=== PATIENT | female | born 1945 | race Caucasian/White ===

== ENCOUNTER 2016-03-03 06:20 | Emergency (ER) | payer MEDICARE, OTHER ==
--- NOTE | 2016-03-03 08:02 | RAD ---
HISTORY: Head injury COMPARISONS: None TECHNIQUE: Multiple contiguous axial CT scans were obtained of the head without intravenous contrast. FINDINGS: HEMORRHAGE/INFARCT: There is no hemorrhage or acute infarct. MASSES/SHIFT: There is no mass or shift. EXTRA-AXIAL SPACES: There are no extra-axial fluid collections. SULCI AND VENTRICLES: The sulci and ventricles are normal in size and position for the patient's stated age. CEREBRUM: There are no focal parenchymal abnormalities. BRAINSTEM: There are no focal parenchymal abnormalities. CEREBELLUM: There are no focal parenchymal abnormalities. VESSELS: The vessels are grossly normal. PARANASAL SINUSES: The paranasal sinuses are clear. ORBITS: The orbits are unremarkable. BONES AND SOFT TISSUE: No bone or soft tissue abnormalities are noted. OTHER: None IMPRESSION: NO ACUTE INTRACRANIAL PATHOLOGY.
--- NOTE | 2016-03-03 08:04 | RAD ---
HISTORY: Injury, facial trauma COMPARISONS: None TECHNIQUE: Multiple contiguous axial CT scans were obtained of the face without intravenous contrast, with coronal and sagittal multiplanar reformations. FINDINGS: BONES: There is no displaced fracture or dislocation. The orbital rim is intact. The zygomatic arch is intact. The pterygoid plates are intact. Degenerative changes are noted of the cervical spine ORBITS: The globes are round. The optic nerves are symmetric. The extraocular musculature is normal. There is no post septal or intraconal inflammatory change. There is no retrobulbar hematoma. PARANASAL SINUSES: The paranasal sinuses are clear. BRAIN AND SOFT TISSUE: Unremarkable. OTHER: None. IMPRESSION: NO FACIAL FRACTURE
--- NOTE | 2016-03-03 08:07 | RAD ---
INDICATION: Bilateral shoulder pain. TECHNIQUE: 3 views of both shoulders were obtained. FINDINGS: The bones are in normal alignment. No fracture is seen. Joint spaces appear maintained. IMPRESSION: NEGATIVE EXAM.
--- NOTE | 2016-03-03 08:09 | ED ---
Guy Roa SooYoung, scribed for Mauro Espinal on 03/03/16 at 0650 . Adult Trauma - HPI Summary HPI Summary: A 70 y/o F presents to ED after a fall in her driveway yesterday at approv 1000. Pt states she tripped over her feet. Denies LOC. She has facial abrasions and bruising. Associated sx: shoulder pain, R worse than L. Pt does not take any blood thinners. Denies SOB, CP, neck pain. Pt is UTD on tetanus. - History of Current Complaint Chief Complaint: EDHeadInjury Stated Complaint: FACIAL LAC/SHOULDER PAIN FALL Hx Obtained From: Patient Mechanism of Injury: Fall - from standing Loss of Consciousness: no loss of consciousness Current Severity: Moderate Pain Intensity: 6 Pain Scale Used: 0-10 Numeric Associated Signs & Symptoms: Positive: Ecchymosis - facial, Other: - shoulder pain. Negative: SOB, Chest Pain, Loss of Consciousness - Allergy/Home Medications Allergies/Adverse Reactions: Allergies Allergy/AdvReac Type Severity Reaction Status Date / Time Fish Allergy Allergy Unknown Verified 11/23/15 14:10 Reaction Details Hydrogen Peroxide Allergy See Comment Verified 11/23/15 14:10 Witch Sayra Allergy See Comment Verified 11/23/15 14:10 PMH/Surg Hx/FS Hx/Imm Hx Previously Healthy: Yes - Cancer History Hx Chemotherapy: No Hx Radiation Therapy: No Infectious Disease History: No Infectious Disease History: Denies: Traveled Outside the [place] in Last 30 Days - Family History Known Family History: Positive: Other - BREAST CA - Social History Occupation: Retired Lives: With Family Review of Systems Negative: Chest Pain Negative: Shortness Of Breath Positive: Other - pos: shoulder pain, R worse than L; neg: neck pain Positive: Other - FACIAL ABRASIONS All Other Systems Reviewed And Are Negative: Yes Physical Exam Triage Information Reviewed: Yes Vital Signs On Initial Exam: Initial Vitals Temp Pulse Resp BP Pulse Ox 97.8 F 90 20 142/91 98 03/03/16 06:23 03/03/16 06:23 03/03/16 06:23 03/03/16 06:23 03/03/16 06:23 Vital Signs Reviewed: Yes Appearance: Positive: Well-Appearing, No Pain Distress Skin: Positive: Warm, Skin Color Reflects Adequate Perfusion, Dry, Other - ABRASION TO NOSE, CHIN; BRUISING OVER BILAT ORBTS Head/Face: Positive: Normal Head/Face Inspection Eyes: Positive: EOMI, KIERA ENT: Positive: Normal ENT inspection Neck: Positive: Supple, Nontender Respiratory/Lung Sounds: Positive: Clear to Auscultation, Breath Sounds Present Cardiovascular: Positive: RRR, Pulses are Symmetrical in both Upper and Lower Extremities Abdomen Description: Positive: Nontender, Soft Bowel Sounds: Positive: Present Musculoskeletal: Positive: Other - RESTRICTURED ROM AT R SHOULDER; TENDERNESS AT R SHOULDER Neurological: Positive: Normal, Sensory/Motor Intact, Alert, Oriented to Person Place, Time Diagnostics - Vital Signs Vital Signs Temp Pulse Resp BP Pulse Ox 03/03/16 06:23 97.8 F 90 20 142/91 98 - Laboratory Lab Statement: Any lab studies that have been ordered have been reviewed, and results considered in the medical decision making process. - Radiology Bilateral Shouler XR Xray Interpretation: No Acute Changes Radiology Interpretation Completed By: Radiologist - CT CT Brain CT Interpretation: No Acute Changes CT Interpretation Completed By: Radiologist CT Maxillofacial CT Interpretation: No Acute Changes CT Interpretation Completed By: Radiologist Adult Trauma Course/Dx - Course Course Of Treatment: CT Brain, CT maxillofacial, and bilateral shoulder XR are negative. Wll d/c the pt on motran and to follow up with PCP. - Diagnoses Provider Diagnoses: Head injury, Shoulder pain Discharge - Discharge Plan Condition: Stable Disposition: HOME Discharge Disposition Comment: endorsed to Dr Wilks Referrals: Helena Mcintyre MD [Primary Care Provider] - The documentation as recorded by the Guy walden SooYoung accurately reflects the service I personally performed and the decisions made by Teddy jones Emmanuel.
[2016-03-03 08:23] VITALS: BP 134/92
== END 2016-03-03 08:24 | disposition home or self-care (01) ==
LOC: ED 06:20
DX: S09.90XA Unspecified injury of head, initial encounter (principal); M25.512 Pain in left shoulder; M25.511 Pain in right shoulder; W18.09XA Striking against other object with subsequent fall, initial encounter; Y92.488 Other paved roadways as the place of occurrence of the external cause
CPT/HCPCS: 70450; 70486; 99283

== ENCOUNTER 2018-06-30 12:01 | Emergency (ER) | payer MEDICARE, OTHER ==
--- NOTE | 2018-06-30 13:42 | ED ---
Laceration/Wound HPI - HPI Summary HPI Summary: Patient is an otherwise healthy 72-year-old female presenting to the ED with a 0.5 cm laceration to the distal tip of the left little finger. She states she was chopping vegetables when the knife slipped and cut her small finger. Bleeding is well controlled on arrival. Last tetanus was 2 years ago per patient. Denies any blood thinners. Denies any pain currently. Symptoms are not worse or better with palpation. - History of Current Complaint Stated Complaint: LEFT PINKY LAC PER PT Time Seen by Provider: 06/30/18 12:17 Hx Obtained From: Patient, Family/Motor Vehicle Examiner Mechanism of Injury: Sharp/Blunt Trauma Onset/Duration: Sudden Onset Aggravating: Movement Alleviating: Compression Timing: Constant Onset Severity: Mild Current Severity: None Pain Intensity: 0 Pain Scale Used: 0-10 Numeric Associated Signs & Symptoms: Negative - Allergy/Home Medications Allergies/Adverse Reactions: Allergies Allergy/AdvReac Type Severity Reaction Status Date / Time hydrogen peroxide Allergy Blisters Verified 06/30/18 12:05 shellfish derived Allergy Unknown Verified 06/30/18 12:05 Reaction Details witch ronak Allergy Blisters Verified 06/30/18 12:05 Home Medications: Home Medications Aspirin 81 mg CHEW TAB* [Aspirin Low Dose TAB*] 81 mg PO DAILY 06/30/18 [ History Confirmed 06/30/18] Coconut Oil [Coconut Oil Organic] 1,000 mg PO DAILY 06/30/18 [History Confirmed 06/30/18] Glucosam/Chond/Hyalu/Cf Borate [Move Free Joint Health Ad] 1 tab PO DAILY [History Confirmed 06/30/18] Multivitamin [Multivitamins] 1 cap PO DAILY 06/30/18 [History Confirmed 06/30/18 ] PMH/Surg Hx/FS Hx/Imm Hx Previously Healthy: Yes Endocrine/Hematology History: Denies: Hx Anticoagulant Therapy - Cancer History Hx Chemotherapy: No Hx Radiation Therapy: No - Immunization History Hx Pertussis Vaccination: No Immunizations Up to Date: Yes Infectious Disease History: No Infectious Disease History: Denies: Traveled Outside the [place] in Last 30 Days - Family History Known Family History: Positive: Other - BREAST CA - Social History Occupation: Unemployed Lives: With Family Alcohol Use: None Hx Substance Use: No Substance Use Type: Reports: None Hx Tobacco Use: No Smoking Status (MU): Never Smoked Tobacco Review of Systems Constitutional: Negative Negative: Fever, Chills, Fatigue, Skin Diaphoresis Negative: Palpitations, Chest Pain Negative: Shortness Of Breath, Cough Genitourinary: Negative Positive: no symptoms reported, see HPI Negative: Arthralgia, Myalgia All Other Systems Reviewed And Are Negative: Yes Physical Exam Triage Information Reviewed: Yes Vital Signs On Initial Exam: Initial Vitals Temp Pulse Resp BP Pulse Ox 97.8 F 94 16 169/93 98 06/30/18 12:02 06/30/18 12:02 06/30/18 12:02 06/30/18 12:02 06/30/18 12:02 Vital Signs Reviewed: Yes Appearance: Positive: Well-Appearing, Well-Nourished Skin: Positive: Warm, Skin Color Reflects Adequate Perfusion Head/Face: Positive: Normal Head/Face Inspection Eyes: Positive: EOMI, Conjunctiva Clear Neck: Positive: Supple, No Lymphadenopathy Respiratory/Lung Sounds: Positive: Clear to Auscultation, Breath Sounds Present Cardiovascular: Positive: Pulses are Symmetrical in both Upper and Lower Extremities Musculoskeletal: Positive: Strength/ROM Intact Neurological: Positive: Speech Normal Psychiatric: Positive: Affect/Mood Appropriate Diagnostics - Vital Signs Vital Signs Temp Pulse Resp BP Pulse Ox 06/30/18 12:02 97.8 F 94 16 169/93 98 - Laboratory Lab Statement: Any lab studies that have been ordered have been reviewed, and results considered in the medical decision making process. Laceration Repair Course/Dx - Course Course Of Treatment: Patient is evaluated for 0.5 cm laceration to the distal tip of the left little finger. Bleeding is well-controlled. Adhesive applied as patient does not require sutures at this time. Patient tolerated well. Occlusive gauze and tube gauze wrapped. She is given care instructions. - Clinical Impression Provider Diagnoses: Laceration Discharge - Sign-Out/Discharge Documenting (check all that apply): Patient Departure Patient Received Moderate/Deep Sedation with Procedure: No - Discharge Plan Condition: Stable Disposition: HOME Patient Education Materials: Skin Adhesive Care (ED) Referrals: Helena Mcintyre MD [Primary Care Provider] - Additional Instructions: Keep then bandage applied until later this afternoon The glue will slowly flake off over the next few days - Billing Disposition and Condition Condition: STABLE Disposition: Home
[2018-06-30 13:44] VITALS: BP 0/0
== END 2018-06-30 13:43 | disposition home or self-care (01) ==
LOC: ED 12:01
DX: S61.217A Laceration without foreign body of left little finger without damage to nail, initial encounter (principal); W26.0XXA Contact with knife, initial encounter; Y93.G1 Activity, food preparation and clean up; Y92.9 Unspecified place or not applicable; Z79.82 Long term (current) use of aspirin
CPT/HCPCS: 99282

== ENCOUNTER 2022-06-22 09:53 | Observation (INO) ==
[2022-06-22 10:24] LABS: ABS Basophils 0.1 10^3/uL (0.0-0.1); ABS Eosinophils 0.1 10^3/uL (0.0-0.5); ABS Lymphocytes 1.7 10^3/uL (1.0-4.8); ABS Monocytes 0.7 10^3/uL (0.0-0.9); Eosinophil % 2.2 %; Hematocrit 46.9 % (35-45); Hemoglobin 15.3 g/dL (11.5-14.3); Lymphocyte % 25.9 %; Mean Corpuscular Hemoglobin 29.4 pg (27-33); Mean Corpuscular Hgb Conc 32.7 g/dL (31-36); Mean Corpuscular Volume 89.9 fL (80-97); Nucleated Red Blood Cells % 0.1 /100 WBC (0.0-0.4); Platelet Count 214 10^3/uL (150-450); Red Blood Count 5.22 10^6/uL (3.63-4.92); Red Cell Distribution Width 13.3 % (12-17); White Blood Count 6.6 10^3/uL (3.8-11.8)
[2022-06-22 10:33] LABS: Activated Partial Thrombo Time 29.8 seconds (26.0-38.0); INR 0.95 (0.88-1.18)
[2022-06-22 11:19] LABS: Albumin 4.1 g/dL (3.2-5.2); Calcium 11.7 mg/dL (8.6-10.3); Potassium 4.7 mmol/L (3.5-5.0); Total Bilirubin 0.4 mg/dL (0.2-1.0)
[2022-06-22 11:25] LABS: Albumin/Globulin Ratio 1.6 (1-3); Creatinine, Serum 0.7 mg/dL (0.51-0.95); Globulin 2.5 g/dL (2-4); HDL Cholesterol 42.5 mg/dL; Total Protein 6.6 g/dL (6.4-8.9); eGFR CKD-EPI 89.6 (>60)
[2022-06-22 13:48] LABS: Urine Appearance Cloudy; Urine Bilirubin Negative (Negative); Urine Blood Negative (Negative); Urine Color Yellow; Urine Glucose Negative (Negative); Urine Ketones Negative (Negative); Urine Nitrite Negative (Negative); Urine Protein Negative (Negative); Urine Specific Gravity 1.012 (1.002-1.030); Urine Urobilinogen Negative (Negative)
[2022-06-22 15:54] LABS: TSH Ultra Thyroid Stim Horm 1.46 mcIU/mL (0.34-5.60)
[2022-06-22] MEDS: NS 0.9% 1000 ml BAG 1,000 ML IV SCH (18:11)
[2022-06-23] MEDS: NS 0.9% 1000 ml BAG 1,000 ML IV SCH (04:11)
[2022-06-23 10:40] VITALS: BP 112/66
== END 2022-06-23 11:10 | disposition home or self-care (01) ==
LOC: ED 09:53 → EDHOLD 09:53 → SUATTDRO 14:03 → MEDTELE 17:22
PROVIDERS: ADMIT Internal Medicine; ATTEND Internal Medicine

== ENCOUNTER 2022-08-07 08:59 | Observation (INO) ==
[2022-08-07 09:23] LABS: ABS Eosinophils 0.1 10^3/uL (0.0-0.5); ABS Lymphocytes 1.5 10^3/uL (1.0-4.8); ABS Monocytes 0.7 10^3/uL (0.0-0.9); ABS Neutrophils 3.6 10^3/uL (1.5-7.6); Eosinophil % 2.1 %; Hematocrit 43.2 % (35-45); Hemoglobin 14.6 g/dL (11.5-14.3); Mean Corpuscular Hemoglobin 29.8 pg (27-33); Mean Corpuscular Hgb Conc 33.7 g/dL (31-36); Mean Corpuscular Volume 88.6 fL (80-97); Mean Platelet Volume 8.6 fL (7.5-11.2); Nucleated Red Blood Cells % 0.1 /100 WBC (0.0-0.4); Platelet Count 203 10^3/uL (150-450); Red Blood Count 4.88 10^6/uL (3.63-4.92); Red Cell Distribution Width 13.2 % (12-17)
[2022-08-07 09:36] LABS: Albumin 3.9 g/dL (3.2-5.2); Albumin/Globulin Ratio 1.5 (1-3); Calcium 11.2 mg/dL (8.6-10.3); Creatinine, Serum 0.67 mg/dL (0.51-0.95); Globulin 2.6 g/dL (2-4); HDL Cholesterol 31.7 mg/dL; Potassium 4.4 mmol/L (3.5-5.0); Total Bilirubin 0.6 mg/dL (0.2-1.0); Total Protein 6.5 g/dL (6.4-8.9); eGFR CKD-EPI 90.5 (>60)
[2022-08-07 09:40] LABS: INR 0.95 (0.88-1.18)
[2022-08-07 09:41] LABS: Activated Partial Thrombo Time 28.6 seconds (26.0-38.0)
[2022-08-07] MEDS ORDERED: Iodixanol (CONTRAST) 320 MG/ML 100 ML SDV IV ONE (09:41)
[2022-08-07] MEDS ORDERED: Senna TAB 8.6 mg TAB PO PRN (10:11)
[2022-08-07] MEDS ORDERED: Al Hydrox/Mg Hydrox/Simet LIQ 30 ML UDC PO PRN (10:11)
[2022-08-07] MEDS ORDERED: Enoxaparin 40 MG/0.4 ML SYR SUBCUT SCH (11:00)
[2022-08-07 11:37] LABS: Urine Appearance Clear; Urine Bilirubin Negative (Negative); Urine Blood Negative (Negative); Urine Color Straw; Urine Glucose Negative (Negative); Urine Ketones Negative (Negative); Urine Nitrite Negative (Negative); Urine Protein Negative (Negative); Urine Specific Gravity 1.042 (1.002-1.030); Urine Urobilinogen Negative (Negative)
[2022-08-07 16:12] VITALS: BP 123/76
[2022-08-08] MEDS ORDERED: Aspirin EC 81 mg TAB.EC (enteric coated) PO SCH (09:00)
== END 2022-08-07 17:00 | disposition home or self-care (01) ==
LOC: ED 08:59 → EDHOLD 08:59 → MEDTELE 11:53
PROVIDERS: ADMIT Internal Medicine; ATTEND Internal Medicine